=== PATIENT | female | born 1990 | race African-American/Black ===

== ENCOUNTER 2016-11-12 11:40 | Emergency (ER) | payer MEDICAID ==
[~2016-11-12] VITALS: Ht 147.3 cm; Wt 45.0 kg
[2016-11-12 11:48] VITALS: BP 114/78
== END 2016-11-12 13:55 | disposition home or self-care (01) ==
LOC: ER 11:41
DX: J98.8 Other specified respiratory disorders (principal)
CPT/HCPCS: 99283

== ENCOUNTER 2017-01-12 21:57 | Emergency (ER) | payer MEDICAID ==
[~2017-01-12] VITALS: Ht 147.3 cm; Wt 50.0 kg
[2017-01-12 22:45] VITALS: BP 116/74
[2017-01-12] MEDS ORDERED: CYCLOBENZAPRINE 10MG TABLET PO SCH (23:15)
== END 2017-01-12 23:25 | disposition home or self-care (01) ==
LOC: ER 21:57
DX: M62.830 Muscle spasm of back (principal); M25.511 Pain in right shoulder; Z87.891 Personal history of nicotine dependence; V43.52XA Car driver injured in collision with other type car in traffic accident, initial encounter; Y93.89 Activity, other specified; Y92.410 Unspecified street and highway as the place of occurrence of the external cause; Y99.8 Other external cause status
CPT/HCPCS: 99283